=== PATIENT | male | born 2005 | race Caucasian/White ===

== ENCOUNTER 2024-01-22 21:51 | Emergency (ER) | payer BC ==
[~2024-01-22] VITALS: Ht 182.9 cm; Wt 79.5 kg
[2024-01-22 22:24] VITALS: BP 136/78; TEMP 98.2
[2024-01-22] MEDS ORDERED: CRUTCHES MC (23:31)
[2024-01-22 23:39] VITALS: PULSE 62
== END 2024-01-22 23:40 | disposition home or self-care (01) ==
LOC: COL.ER 21:51
DX: S93.402A Sprain of unspecified ligament of left ankle, initial encounter (principal); X50.1XXA Overexertion from prolonged static or awkward postures, initial encounter; Y93.67 Activity, basketball; Y92.310 Basketball court as the place of occurrence of the external cause